=== PATIENT | female | born 1955 | race Two or more races ===

== ENCOUNTER 2021-02-16 14:08 | Inpatient (IN) | payer MEDICARE, BC ==
[~2021-02-16] VITALS: Ht 160 cm; Wt 84.9 kg
[2021-02-16 15:12] LABS: Basophils # (auto) 0 10 ^3/uL (0-0.2); Basophils % (auto) 0.3 % (0.0-2.0); Eosinophils # (auto) 0 10 ^3/uL (0-0.8); Eosinophils % (auto) 0.2 % (0.0-7.0); Lymphocytes # (auto) 0.7 10 ^3/uL (0.4-5.4); Mean Corpuscular Hemoglobin 33.1 pg (28.0-32.0); Mean Corpuscular Hgb Conc. 34.5 g/dL (32.0-36.0); Monocytes # (auto) 0.4 10 ^3/uL (0-1.3); Monocytes % (auto) 5.8 % (0.0-12.0); Neutrophils # (auto) 5.8 10 ^3/uL (1.6-8.6); Neutrophils % (auto) 83.7 % (37.0-80.0); Red Blood Cells 3.02 10^6/uL (4.0-5.20); Red Cell Distribution Width 14.1 % (11.8-14.3); White Blood Cell 6.9 10^3/uL (4.4-10.8)
[2021-02-16 15:22] LABS: Albumin 3.2 g/dL (3.4-5.0); Anion Gap 9 (5-15); Blood Urea Nitrogen 42 mg/dL (7-18); Calcium 8.5 mg/dL (8.5-10.1); Carbon Dioxide 18 mmol/L (21-32); Chloride 101 mmol/L (98-107); Potassium 4.7 mmol/L (3.5-5.1); Sodium 128 mmol/L (136-145)
[2021-02-16 15:25] LABS: Alanine Aminotransferase 32 U/L (13-56); Aspartate Aminotransferase 54 U/L (15-37); GFR African American 18 mL/min; GFR Non-African American 15 mL/min; Glucose 94 mg/dL (74-106)
[2021-02-16 15:30] LABS: Alkaline Phosphatase 66 U/L (45-117); Bilirubin, Total 0.5 mg/dL (0.2-1.0); Total Protein 7.3 g/dL (6.4-8.2)
[2021-02-16] MEDS ORDERED: IPRATROPIUM BROM 0.5 MG/2.5ML INH SOL NEB ONE (15:45)
[2021-02-16] MEDS ORDERED: methylPREDNISolone SOD SUCC 125 MG/2 ML VL IV ONE (15:45)
[2021-02-16] MEDS ORDERED: ALBUTEROL SULF 2.5 MG/0.5ML(0.5%) NEB SOLN NEB ONE (15:45)
[2021-02-16] MEDS ORDERED: cefTRIAXone 1GM/50ML D5W 50 ML IV ONE (18:00)
[2021-02-16] MEDS ORDERED: AZITHROMYCIN 500MG/ 250ML 250 ML IV ONE (18:00)
[2021-02-16 18:44] LABS: Urine Amorphous Crystal FEW /hpf (None Seen); Urine Bacteria FEW /hpf (None Seen); Urine Blood 3+ /uL (Negative); Urine Specific Gravity 1.014 (1.001-1.035); Urine WBC 2 /hpf (0 - 5)
[2021-02-16 18:51] LABS: Amphetamine Screen, Urine NEGATIVE (NEGATIVE); Barbiturate Scree,Urine NEGATIVE (NEGATIVE); Benzodiazephine Screen, Urine POSITIVE (NEGATIVE); Cannabinoid Screen, Urine POSITIVE (NEGATIVE); Cocaine Screen, Urine NEGATIVE (NEGATIVE)
[2021-02-16 18:58] LABS: Opiate Scree,Urine NEGATIVE (NEGATIVE); Phencyclidine Screen, Urine NEGATIVE (NEGATIVE)
[2021-02-16] MEDS ORDERED: NITROGLYCERIN 0.4 MG SL TAB SL PRN (19:00)
[2021-02-16] MEDS ORDERED: MORPHINE SULFATE INJECTION 2 MG/ML SYRG IV PRN (19:00)
[2021-02-16] MEDS ORDERED: FUROSEMIDE 20 MG/2 ML VIAL IV ONE (19:15)
[2021-02-16 22:00] VITALS: BP 128/68
[2021-02-16] MEDS: ALBUTEROL SULF HFA 90MCG INH 200DOSE IN PRN (22:12)
[2021-02-16 22:55] VITALS: BP 128/68
[2021-02-17 01:21] VITALS: BP 128/68
[2021-02-17 05:00] VITALS: BP 100/48
[2021-02-17 05:36] LABS: Basophils # (auto) 0 10 ^3/uL (0-0.2); Basophils % (auto) 0.1 % (0.0-2.0); Eosinophils # (auto) 0 10 ^3/uL (0-0.8); Eosinophils % (auto) 0.1 % (0.0-7.0); Hematocrit 27.5 % (36.0-46.0); Hemoglobin 9.6 g/dL (12.2-16.2); Lymphocytes # (auto) 0.3 10 ^3/uL (0.4-5.4); Lymphocytes % (auto) 8.1 % (10.0-50.0); Mean Corpuscular Hemoglobin 33.5 pg (28.0-32.0); Mean Corpuscular Hgb Conc. 34.9 g/dL (32.0-36.0); Mean Corpuscular Volume 96.1 fL (80.0-100.0); Monocytes # (auto) 0.1 10 ^3/uL (0-1.3); Monocytes % (auto) 2.5 % (0.0-12.0); Neutrophils # (auto) 3.5 10 ^3/uL (1.6-8.6); Neutrophils % (auto) 89.2 % (37.0-80.0); Red Blood Cells 2.86 10^6/uL (4.0-5.20); Red Cell Distribution Width 14.4 % (11.8-14.3)
[2021-02-17 06:01] LABS: Albumin 3.1 g/dL (3.4-5.0); Calcium 8.8 mg/dL (8.5-10.1); Potassium 4.6 mmol/L (3.5-5.1)
[2021-02-17 06:06] LABS: BUN/Creatinine Ratio 15.4; Bilirubin, Total 0.4 mg/dL (0.2-1.0); Total Protein 7.4 g/dL (6.4-8.2)
[2021-02-17] MEDS: ALBUTEROL SULF HFA 90MCG INH 200DOSE IN PRN (06:24)
[2021-02-17] MEDS ORDERED: IVERMECTIN 3 MG TAB PO ONE (07:00)
[2021-02-17] MEDS: ZINC SULFATE 220mg CAP or TAB PO SCH (08:14)
[2021-02-17] MEDS: DexAMETHasone SOD PHOS 10MG/1ML VIAL INJ IV SCH (08:14)
[2021-02-17] MEDS: ASCORBIC ACID 1,000 MG TAB PO SCH (08:14)
[2021-02-17] MEDS: CHOLECALCIFEROL (VITD3) 2,000 UNIT CAP/TAB PO SCH (08:14)
[2021-02-17] MEDS: ENOXAPARIN SOD 40 MG/0.4 ML SYRINGE SC SCH (08:15)
[2021-02-17 09:00] VITALS: BP 93/64
[2021-02-17] MEDS ORDERED: AZITHROMYCIN 500MG/ 250ML 250 ML IV SCH (10:00)
[2021-02-17 13:00] VITALS: BP 138/94
[2021-02-17] MEDS ORDERED: SODIUM BICARBONATE 50ML VIAL 75 ML in SOD CHL 0.45% 1,000 ML IV ONE (13:15)
[2021-02-17] MEDS ORDERED: BUDESONIDE (INHALATION) 0.5 MG/2 ML NEB NEB ONE (15:15)
[2021-02-17] MEDS ORDERED: ASPirin 81 mg TAB PO ONE (15:15)
[2021-02-17] MEDS ORDERED: BUDESONIDE (INHALATION) 0.5 MG/2 ML NEB ONE (15:21)
[2021-02-17] MEDS ORDERED: ALLO300T2 PO (15:52)
[2021-02-17] MEDS ORDERED: TEMA30CA PO (15:52)
[2021-02-17] MEDS ORDERED: MAGN400T40 PO (15:52)
[2021-02-17] MEDS ORDERED: ATOR40TA52 PO (15:52)
[2021-02-17] MEDS ORDERED: LEVO125T7 PO (15:52)
[2021-02-17] MEDS ORDERED: METO25TA5 PO (15:52)
[2021-02-17] MEDS ORDERED: SERT50TA19 PO (15:52)
[2021-02-17] MEDS ORDERED: OMEP20TA PO (15:52)
[2021-02-17] MEDS ORDERED: VALS40TA2 PO (15:52)
[2021-02-17 17:00] VITALS: BP 115/64
[2021-02-17] MEDS: Nepro With Carbsteady ButterPecan 8oz Carton PO SCH (18:14)
[2021-02-17] MEDS: ALBUTEROL SULF 2.5 MG/0.5ML(0.5%) NEB SOLN NEB SCH (18:58)
[2021-02-17] MEDS: IPRATROPIUM BROM 0.5 MG/2.5ML INH SOL NEB SCH (18:58)
[2021-02-17] MEDS: BUDESONIDE (INHALATION) 0.5 MG/2 ML NEB NEB SCH (18:58)
[2021-02-17] MEDS: ATORVASTATIN 20 MG TAB PO SCH (21:46)
[2021-02-17 22:00] VITALS: BP 131/76
[2021-02-18 05:00] VITALS: BP 125/70
[2021-02-18 06:16] LABS: Basophils # (auto) 0 10 ^3/uL (0-0.2); Basophils % (auto) 0.1 % (0.0-2.0); Eosinophils # (auto) 0 10 ^3/uL (0-0.8); Hematocrit 27.1 % (36.0-46.0); Hemoglobin 9.5 g/dL (12.2-16.2); Lymphocytes # (auto) 0.4 10 ^3/uL (0.4-5.4); Lymphocytes % (auto) 3.7 % (10.0-50.0); Mean Corpuscular Hemoglobin 33.1 pg (28.0-32.0); Mean Corpuscular Hgb Conc. 35.1 g/dL (32.0-36.0); Mean Corpuscular Volume 94.4 fL (80.0-100.0); Monocytes # (auto) 0.4 10 ^3/uL (0-1.3); Monocytes % (auto) 3.7 % (0.0-12.0); Neutrophils # (auto) 10.6 10 ^3/uL (1.6-8.6); Neutrophils % (auto) 92.5 % (37.0-80.0); Nucleated Red Blood Cells % 0.1 %; Red Blood Cells 2.87 10^6/uL (4.0-5.20); Red Cell Distribution Width 14.3 % (11.8-14.3); White Blood Cell 11.5 10^3/uL (4.4-10.8)
[2021-02-18 06:38] LABS: Potassium 4.7 mmol/L (3.5-5.1)
[2021-02-18 06:45] LABS: BUN/Creatinine Ratio 20.4; Calcium 8.9 mg/dL (8.5-10.1)
[2021-02-18] MEDS: IPRATROPIUM BROM 0.5 MG/2.5ML INH SOL NEB SCH ×3 (07:40→19:09)
[2021-02-18] MEDS: ALBUTEROL SULF 2.5 MG/0.5ML(0.5%) NEB SOLN NEB SCH ×3 (07:40→19:09)
[2021-02-18] MEDS: BUDESONIDE (INHALATION) 0.5 MG/2 ML NEB NEB SCH ×2 (07:40→19:09)
[2021-02-18] MEDS: Nepro With Carbsteady ButterPecan 8oz Carton PO SCH ×3 (08:54→18:24)
[2021-02-18 09:00] VITALS: BP 111/32
[2021-02-18] MEDS: DexAMETHasone SOD PHOS 10MG/1ML VIAL INJ IV SCH (09:33)
[2021-02-18] MEDS: AZITHROMYCIN 250 MG TAB PO SCH (09:34)
[2021-02-18] MEDS: ENOXAPARIN SOD 40 MG/0.4 ML SYRINGE SC SCH (09:34)
[2021-02-18] MEDS: ZINC SULFATE 220mg CAP or TAB PO SCH (09:34)
[2021-02-18] MEDS: ASCORBIC ACID 1,000 MG TAB PO SCH (09:34)
[2021-02-18] MEDS: CHOLECALCIFEROL (VITD3) 2,000 UNIT CAP/TAB PO SCH (09:34)
[2021-02-18] MEDS: ASPirin 81 mg TAB PO SCH (09:34)
[2021-02-18 13:00] VITALS: BP 134/70
[2021-02-18] MEDS: SODIUM BICARBONATE 50ML VIAL 75 ML in SOD CHL 0.45% 1,000 ML IV SCH (13:27)
[2021-02-18 17:00] VITALS: BP 131/78
[2021-02-18 22:00] VITALS: BP 126/76
[2021-02-18] MEDS: ATORVASTATIN 20 MG TAB PO SCH ×2 (22:36→22:50)
[2021-02-19] VITALS (8 sets, daily range): BP systolic 106–160; BP diastolic 58–79
[2021-02-19] MEDS: SODIUM BICARBONATE 50ML VIAL 75 ML in SOD CHL 0.45% 1,000 ML IV SCH ×2 (03:20→12:00)
[2021-02-19] MEDS: LEVOTHYROXINE SODIUM 50 MCG TAB PO SCH (06:21)
[2021-02-19 06:51] LABS: Basophils # (auto) 0 10 ^3/uL (0-0.2); Basophils % (auto) 0.2 % (0.0-2.0); Eosinophils # (auto) 0 10 ^3/uL (0-0.8); Hematocrit 26.2 % (36.0-46.0); Hemoglobin 9.4 g/dL (12.2-16.2); Lymphocytes # (auto) 0.5 10 ^3/uL (0.4-5.4); Lymphocytes % (auto) 6.4 % (10.0-50.0); Mean Corpuscular Hemoglobin 33.9 pg (28.0-32.0); Mean Corpuscular Hgb Conc. 35.8 g/dL (32.0-36.0); Mean Corpuscular Volume 94.6 fL (80.0-100.0); Monocytes # (auto) 0.4 10 ^3/uL (0-1.3); Monocytes % (auto) 5.7 % (0.0-12.0); Neutrophils # (auto) 6.4 10 ^3/uL (1.6-8.6); Neutrophils % (auto) 87.7 % (37.0-80.0); Red Blood Cells 2.77 10^6/uL (4.0-5.20); Red Cell Distribution Width 14.4 % (11.8-14.3); White Blood Cell 7.3 10^3/uL (4.4-10.8)
[2021-02-19 07:06] LABS: Potassium 4.4 mmol/L (3.5-5.1)
[2021-02-19 07:13] LABS: Calcium 8.7 mg/dL (8.5-10.1)
[2021-02-19] MEDS: BUDESONIDE (INHALATION) 0.5 MG/2 ML NEB NEB SCH ×2 (07:25→19:19)
[2021-02-19] MEDS: ALBUTEROL SULF 2.5 MG/0.5ML(0.5%) NEB SOLN NEB SCH ×3 (07:25→19:18)
[2021-02-19] MEDS: IPRATROPIUM BROM 0.5 MG/2.5ML INH SOL NEB SCH ×3 (07:25→19:19)
[2021-02-19] MEDS: Nepro With Carbsteady ButterPecan 8oz Carton PO SCH ×3 (08:20→17:51)
[2021-02-19] MEDS: ASPirin 81 mg TAB PO SCH (09:37)
[2021-02-19] MEDS: AZITHROMYCIN 250 MG TAB PO SCH (09:37)
[2021-02-19] MEDS: DexAMETHasone SOD PHOS 10MG/1ML VIAL INJ IV SCH (09:37)
[2021-02-19] MEDS: SERTRALINE HCL 50 MG TAB PO SCH (09:37)
[2021-02-19] MEDS: CHOLECALCIFEROL (VITD3) 2,000 UNIT CAP/TAB PO SCH (09:37)
[2021-02-19] MEDS: ASCORBIC ACID 1,000 MG TAB PO SCH (09:37)
[2021-02-19] MEDS: ZINC SULFATE 220mg CAP or TAB PO SCH (09:37)
[2021-02-19] MEDS: ALLOPURINOL 100 MG TAB PO SCH (09:38)
[2021-02-19] MEDS: ENOXAPARIN SOD 40 MG/0.4 ML SYRINGE SC SCH (09:39)
[2021-02-19] MEDS ORDERED: PROMETHAZINE W/CODEINE 5 ML ORAL SYRUP PO PRN (11:30)
[2021-02-19] MEDS: ACETAMINOPHEN 325 MG TAB PO PRN (12:26)
[2021-02-19] MEDS: TEMAZEPAM 15 MG CAP PO PRN (22:50)
[2021-02-20] MEDS: SODIUM BICARBONATE 50ML VIAL 75 ML in SOD CHL 0.45% 1,000 ML IV SCH (03:20)
[2021-02-20 05:00] VITALS: BP 148/79
[2021-02-20] MEDS: LEVOTHYROXINE SODIUM 50 MCG TAB PO SCH (06:21)
[2021-02-20] MEDS: IPRATROPIUM BROM 0.5 MG/2.5ML INH SOL NEB SCH ×3 (06:59→19:06)
[2021-02-20] MEDS: ALBUTEROL SULF 2.5 MG/0.5ML(0.5%) NEB SOLN NEB SCH ×3 (06:59→19:05)
[2021-02-20 07:12] LABS: Hematocrit 26.3 % (36.0-46.0); Hemoglobin 9.3 g/dL (12.2-16.2); Mean Corpuscular Hemoglobin 33.5 pg (28.0-32.0); Mean Corpuscular Hgb Conc. 35.2 g/dL (32.0-36.0); Mean Corpuscular Volume 95.1 fL (80.0-100.0); Red Blood Cells 2.76 10^6/uL (4.0-5.20); White Blood Cell 7.4 10^3/uL (4.4-10.8)
[2021-02-20 07:23] LABS: Band Neutrophils % (manual) 0; Basophils % (manual) 0 (0.0-2.0); Blast Cells 0; Eosinophils % (manual) 0 (0-7); Myelocytes % 0; Promyelocytes % 0; Reactive Lymphocytes 0
[2021-02-20 07:32] LABS: Potassium 4.4 mmol/L (3.5-5.1)
[2021-02-20 07:37] LABS: BUN/Creatinine Ratio 23.7; Calcium 8.7 mg/dL (8.5-10.1)
[2021-02-20 07:55] LABS: Lymphocytes % (manual) 6 (10.0-50.0); Metamyelocytes % 1; Monocytes % (manual) 7 (0-12)
[2021-02-20] MEDS: Nepro With Carbsteady ButterPecan 8oz Carton PO SCH ×3 (08:26→17:42)
[2021-02-20 09:00] VITALS: BP 147/73
[2021-02-20] MEDS: ENOXAPARIN SOD 40 MG/0.4 ML SYRINGE SC SCH (09:38)
[2021-02-20] MEDS: DexAMETHasone SOD PHOS 10MG/1ML VIAL INJ IV SCH (09:38)
[2021-02-20] MEDS: AZITHROMYCIN 250 MG TAB PO SCH (09:39)
[2021-02-20] MEDS: ALLOPURINOL 100 MG TAB PO SCH (09:39)
[2021-02-20] MEDS: ASPirin 81 mg TAB PO SCH (09:39)
[2021-02-20] MEDS: SERTRALINE HCL 50 MG TAB PO SCH (09:39)
[2021-02-20] MEDS: CHOLECALCIFEROL (VITD3) 2,000 UNIT CAP/TAB PO SCH (09:39)
[2021-02-20] MEDS: ASCORBIC ACID 1,000 MG TAB PO SCH (09:39)
[2021-02-20] MEDS: ZINC SULFATE 220mg CAP or TAB PO SCH (09:39)
[2021-02-20] MEDS: BUDESONIDE (INHALATION) 0.5 MG/2 ML NEB NEB SCH ×2 (10:55→19:06)
[2021-02-20 13:01] VITALS: BP 129/67
[2021-02-20 16:58] VITALS: BP 136/79
[2021-02-20] MEDS ORDERED: FUROSEMIDE 40 MG/4 ML VIAL IV ONE (17:30)
[2021-02-20] MEDS: ATORVASTATIN 20 MG TAB PO SCH (21:52)
[2021-02-20] MEDS: TEMAZEPAM 15 MG CAP PO PRN (21:52)
[2021-02-20 22:00] VITALS: BP 124/63
[2021-02-20] MEDS: ACETAMINOPHEN 325 MG TAB PO PRN (23:47)
[2021-02-21] MEDS: traMADol HCL 50 MG TAB PO PRN ×2 (02:19→10:33)
[2021-02-21 05:00] VITALS: BP 150/78
[2021-02-21] MEDS: IPRATROPIUM BROM 0.5 MG/2.5ML INH SOL NEB SCH ×3 (06:00→18:47)
[2021-02-21] MEDS: ALBUTEROL SULF 2.5 MG/0.5ML(0.5%) NEB SOLN NEB SCH ×3 (06:00→18:46)
[2021-02-21] MEDS: LEVOTHYROXINE SODIUM 50 MCG TAB PO SCH (06:25)
[2021-02-21] MEDS: Nepro With Carbsteady ButterPecan 8oz Carton PO SCH ×3 (08:00→18:00)
[2021-02-21 09:00] VITALS: BP 141/72
[2021-02-21] MEDS: BUDESONIDE (INHALATION) 0.5 MG/2 ML NEB NEB SCH ×2 (10:00→18:47)
[2021-02-21] MEDS: DexAMETHasone SOD PHOS 10MG/1ML VIAL INJ IV SCH (10:33)
[2021-02-21] MEDS: ASPirin 81 mg TAB PO SCH (10:33)
[2021-02-21] MEDS: CHOLECALCIFEROL (VITD3) 2,000 UNIT CAP/TAB PO SCH (10:34)
[2021-02-21] MEDS: SERTRALINE HCL 50 MG TAB PO SCH (10:34)
[2021-02-21] MEDS: ASCORBIC ACID 1,000 MG TAB PO SCH (10:34)
[2021-02-21] MEDS: ZINC SULFATE 220mg CAP or TAB PO SCH (10:34)
[2021-02-21] MEDS: ENOXAPARIN SOD 40 MG/0.4 ML SYRINGE SC SCH (10:35)
[2021-02-21] MEDS: ALLOPURINOL 100 MG TAB PO SCH (10:35)
[2021-02-21] MEDS ORDERED: FUROSEMIDE 40 MG/4 ML VIAL IV ONE (12:45)
[2021-02-21 13:00] VITALS: BP 138/70
[2021-02-21 13:14] LABS: Hematocrit 26.3 % (36.0-46.0); Hemoglobin 9.1 g/dL (12.2-16.2); Mean Corpuscular Hemoglobin 33.1 pg (28.0-32.0); Mean Corpuscular Hgb Conc. 34.8 g/dL (32.0-36.0); Mean Corpuscular Volume 95.1 fL (80.0-100.0); Red Blood Cells 2.76 10^6/uL (4.0-5.20); Red Cell Distribution Width 14.3 % (11.8-14.3); White Blood Cell 8.1 10^3/uL (4.4-10.8)
[2021-02-21 13:21] LABS: Basophils % (manual) 0 (0.0-2.0); Blast Cells 0; Eosinophils % (manual) 0 (0-7); Metamyelocytes % 0; Myelocytes % 0; Promyelocytes % 0; Reactive Lymphocytes 0
[2021-02-21 13:37] LABS: BUN/Creatinine Ratio 19.2; Calcium 8.7 mg/dL (8.5-10.1); Potassium 4.3 mmol/L (3.5-5.1)
[2021-02-21 13:38] LABS: Band Neutrophils % (manual) 2; Lymphocytes % (manual) 2 (10.0-50.0); Monocytes % (manual) 1 (0-12)
[2021-02-21 17:00] VITALS: BP 138/81
[2021-02-21 22:00] VITALS: BP 102/59
[2021-02-21] MEDS: ATORVASTATIN 20 MG TAB PO SCH (22:35)
[2021-02-21] MEDS: TEMAZEPAM 15 MG CAP PO PRN (22:36)
[2021-02-22] MEDS: traMADol HCL 50 MG TAB PO PRN (04:09)
[2021-02-22 05:45] VITALS: BP 142/78
[2021-02-22] MEDS: LEVOTHYROXINE SODIUM 50 MCG TAB PO SCH (06:45)
[2021-02-22] MEDS: IPRATROPIUM BROM 0.5 MG/2.5ML INH SOL NEB SCH ×3 (07:01→18:35)
[2021-02-22] MEDS: ALBUTEROL SULF 2.5 MG/0.5ML(0.5%) NEB SOLN NEB SCH ×3 (07:01→18:35)
[2021-02-22] MEDS: BUDESONIDE (INHALATION) 0.5 MG/2 ML NEB NEB SCH ×2 (07:01→18:35)
[2021-02-22 07:39] LABS: Hematocrit 26.3 % (36.0-46.0); Hemoglobin 9.3 g/dL (12.2-16.2); Mean Corpuscular Hgb Conc. 35.3 g/dL (32.0-36.0); Mean Corpuscular Volume 96.1 fL (80.0-100.0); Red Blood Cells 2.73 10^6/uL (4.0-5.20); Red Cell Distribution Width 14.4 % (11.8-14.3); White Blood Cell 7.5 10^3/uL (4.4-10.8)
[2021-02-22 07:45] LABS: Basophils % (manual) 0 (0.0-2.0); Blast Cells 0; Metamyelocytes % 0; Promyelocytes % 0; Reactive Lymphocytes 0
[2021-02-22 07:48] LABS: Calcium 8.9 mg/dL (8.5-10.1); Potassium 4.2 mmol/L (3.5-5.1)
[2021-02-22 07:50] LABS: BUN/Creatinine Ratio 20.1
[2021-02-22] MEDS: Nepro With Carbsteady ButterPecan 8oz Carton PO SCH ×3 (08:00→18:00)
[2021-02-22 09:00] VITALS: BP 127/89
[2021-02-22 09:52] LABS: Band Neutrophils % (manual) 2; Eosinophils % (manual) 2 (0-7); Lymphocytes % (manual) 8 (10.0-50.0); Monocytes % (manual) 2 (0-12); Myelocytes % 1
[2021-02-22] MEDS: DexAMETHasone SOD PHOS 10MG/1ML VIAL INJ IV SCH (09:55)
[2021-02-22] MEDS: ZINC SULFATE 220mg CAP or TAB PO SCH (09:56)
[2021-02-22] MEDS: ASPirin 81 mg TAB PO SCH (09:56)
[2021-02-22] MEDS: ASCORBIC ACID 1,000 MG TAB PO SCH (09:56)
[2021-02-22] MEDS: SERTRALINE HCL 50 MG TAB PO SCH (09:59)
[2021-02-22] MEDS: CHOLECALCIFEROL (VITD3) 2,000 UNIT CAP/TAB PO SCH (09:59)
[2021-02-22] MEDS: ALLOPURINOL 100 MG TAB PO SCH (10:00)
[2021-02-22] MEDS: ENOXAPARIN SOD 40 MG/0.4 ML SYRINGE SC SCH (10:00)
[2021-02-22 13:00] VITALS: BP 113/68
[2021-02-22] MEDS ORDERED: FUROSEMIDE 40 MG/4 ML VIAL IV ONE (15:00)
[2021-02-22 17:00] VITALS: BP 109/66
[2021-02-22] MEDS: ATORVASTATIN 20 MG TAB PO SCH (21:12)
[2021-02-22] MEDS: TEMAZEPAM 15 MG CAP PO PRN (21:12)
[2021-02-22 22:00] VITALS: BP 117/60
[2021-02-22 22:12] LABS: Creatinine, Urine 49 mg/dL (30.0-125.0); Sodium Urine 64 mmol/L (40-220)
[2021-02-22 23:00] VITALS: BP 117/60
[2021-02-23 05:00] VITALS: BP 115/67
[2021-02-23] MEDS: LEVOTHYROXINE SODIUM 50 MCG TAB PO SCH (06:41)
[2021-02-23 06:58] LABS: Potassium 4.3 mmol/L (3.5-5.1)
[2021-02-23 07:14] LABS: BUN/Creatinine Ratio 21.9; Calcium 9.2 mg/dL (8.5-10.1)
[2021-02-23] MEDS: IPRATROPIUM BROM 0.5 MG/2.5ML INH SOL NEB SCH ×3 (07:51→12:50)
[2021-02-23] MEDS: ALBUTEROL SULF 2.5 MG/0.5ML(0.5%) NEB SOLN NEB SCH ×3 (07:51→12:50)
[2021-02-23] MEDS: Nepro With Carbsteady ButterPecan 8oz Carton PO SCH ×3 (08:08→17:40)
[2021-02-23] MEDS: BUDESONIDE (INHALATION) 0.5 MG/2 ML NEB NEB SCH ×2 (08:22→22:10)
[2021-02-23 09:00] VITALS: BP 111/66
[2021-02-23] MEDS: SERTRALINE HCL 50 MG TAB PO SCH (10:20)
[2021-02-23] MEDS: ZINC SULFATE 220mg CAP or TAB PO SCH (10:20)
[2021-02-23] MEDS: ALLOPURINOL 100 MG TAB PO SCH (10:21)
[2021-02-23] MEDS: ASCORBIC ACID 1,000 MG TAB PO SCH (10:21)
[2021-02-23] MEDS: ASPirin 81 mg TAB PO SCH (10:21)
[2021-02-23] MEDS: CHOLECALCIFEROL (VITD3) 2,000 UNIT CAP/TAB PO SCH (10:22)
[2021-02-23] MEDS: DexAMETHasone SOD PHOS 10MG/1ML VIAL INJ IV SCH (10:22)
[2021-02-23] MEDS: ENOXAPARIN SOD 40 MG/0.4 ML SYRINGE SC SCH (10:22)
[2021-02-23] MEDS ORDERED: FUROSEMIDE 40 MG TAB PO ONE (12:45)
[2021-02-23 13:00] VITALS: BP 127/70
[2021-02-23 17:00] VITALS: BP 121/74
[2021-02-23] MEDS: TEMAZEPAM 15 MG CAP PO PRN (21:12)
[2021-02-23] MEDS: ATORVASTATIN 20 MG TAB PO SCH (21:12)
[2021-02-23 22:00] VITALS: BP 114/65
[2021-02-24] MEDS: traMADol HCL 50 MG TAB PO PRN (03:55)
[2021-02-24 05:00] VITALS: BP 139/78
[2021-02-24] MEDS: LEVOTHYROXINE SODIUM 50 MCG TAB PO SCH (06:37)
[2021-02-24 07:35] LABS: Calcium 9.1 mg/dL (8.5-10.1)
[2021-02-24 07:37] LABS: BUN/Creatinine Ratio 22.8
[2021-02-24] MEDS: IPRATROPIUM BROM 0.5 MG/2.5ML INH SOL NEB SCH ×3 (08:02→19:29)
[2021-02-24] MEDS: ALBUTEROL SULF 2.5 MG/0.5ML(0.5%) NEB SOLN NEB SCH ×3 (08:02→19:29)
[2021-02-24] MEDS: BUDESONIDE (INHALATION) 0.5 MG/2 ML NEB NEB SCH ×2 (08:02→19:29)
[2021-02-24] MEDS: Nepro With Carbsteady ButterPecan 8oz Carton PO SCH ×3 (08:06→17:43)
[2021-02-24 09:00] VITALS: BP 104/60
[2021-02-24] MEDS ORDERED: FUROSEMIDE 40 MG TAB PO SCH (10:00)
[2021-02-24] MEDS: DexAMETHasone SOD PHOS 10MG/1ML VIAL INJ IV SCH (10:48)
[2021-02-24] MEDS: ASPirin 81 mg TAB PO SCH (10:48)
[2021-02-24] MEDS: ASCORBIC ACID 1,000 MG TAB PO SCH (10:49)
[2021-02-24] MEDS: ZINC SULFATE 220mg CAP or TAB PO SCH (10:49)
[2021-02-24] MEDS: CHOLECALCIFEROL (VITD3) 2,000 UNIT CAP/TAB PO SCH (10:50)
[2021-02-24] MEDS: ENOXAPARIN SOD 40 MG/0.4 ML SYRINGE SC SCH (10:50)
[2021-02-24] MEDS: SERTRALINE HCL 50 MG TAB PO SCH (10:50)
[2021-02-24] MEDS: ALLOPURINOL 100 MG TAB PO SCH (10:50)
[2021-02-24] MEDS ORDERED: SODIUM CHLORIDE 0.9% 1,000 ML IV SCH (11:00)
[2021-02-24 12:45] VITALS: BP 131/71
[2021-02-24 16:48] VITALS: BP 144/76
[2021-02-24] MEDS: ATORVASTATIN 20 MG TAB PO SCH (21:42)
[2021-02-24] MEDS: TEMAZEPAM 15 MG CAP PO PRN (21:42)
[2021-02-24 22:00] VITALS: BP 130/76
[2021-02-25 05:00] VITALS: BP 145/64
[2021-02-25] MEDS: ALBUTEROL SULF 2.5 MG/0.5ML(0.5%) NEB SOLN NEB SCH ×3 (06:58→20:29)
[2021-02-25] MEDS: BUDESONIDE (INHALATION) 0.5 MG/2 ML NEB NEB SCH ×2 (06:58→20:30)
[2021-02-25] MEDS: IPRATROPIUM BROM 0.5 MG/2.5ML INH SOL NEB SCH ×3 (06:58→20:29)
[2021-02-25] MEDS: LEVOTHYROXINE SODIUM 50 MCG TAB PO SCH (07:00)
[2021-02-25] MEDS: Nepro With Carbsteady ButterPecan 8oz Carton PO SCH ×3 (08:00→17:58)
[2021-02-25 09:00] VITALS: BP 128/74
[2021-02-25] MEDS: DexAMETHasone 4 MG TAB PO SCH (09:41)
[2021-02-25] MEDS: ASPirin 81 mg TAB PO SCH (09:41)
[2021-02-25] MEDS: ZINC SULFATE 220mg CAP or TAB PO SCH (09:41)
[2021-02-25] MEDS: ASCORBIC ACID 1,000 MG TAB PO SCH (09:42)
[2021-02-25] MEDS: CHOLECALCIFEROL (VITD3) 2,000 UNIT CAP/TAB PO SCH (09:42)
[2021-02-25] MEDS: SERTRALINE HCL 50 MG TAB PO SCH (09:43)
[2021-02-25] MEDS: ENOXAPARIN SOD 40 MG/0.4 ML SYRINGE SC SCH (09:43)
[2021-02-25] MEDS ORDERED: B-COMPLEX W/ C & FOLIC ACID(NEPHROVITE TAB) PO ONE (10:30)
[2021-02-25] MEDS: ALLOPURINOL 100 MG TAB PO SCH (12:34)
[2021-02-25 13:00] VITALS: BP 126/71
[2021-02-25 17:00] VITALS: BP 120/76
[2021-02-25] MEDS: FUROSEMIDE 40 MG/4 ML VIAL IV SCH (17:58)
[2021-02-25 20:55] VITALS: BP 126/71
[2021-02-25] MEDS: ATORVASTATIN 20 MG TAB PO SCH (21:39)
[2021-02-25 22:00] VITALS: BP 128/71
[2021-02-25] MEDS: TEMAZEPAM 15 MG CAP PO PRN (22:25)
[2021-02-26] MEDS: traMADol HCL 50 MG TAB PO PRN (02:53)
[2021-02-26 05:00] VITALS: BP 137/81
[2021-02-26] MEDS: FUROSEMIDE 40 MG/4 ML VIAL IV SCH (06:05)
[2021-02-26] MEDS: LEVOTHYROXINE SODIUM 50 MCG TAB PO SCH (06:05)
[2021-02-26 06:46] LABS: Basophils # (auto) 0 10 ^3/uL (0-0.2); Basophils % (auto) 0.4 % (0.0-2.0); Eosinophils # (auto) 0.1 10 ^3/uL (0-0.8); Eosinophils % (auto) 0.8 % (0.0-7.0); Hematocrit 27.8 % (36.0-46.0); Hemoglobin 9.7 g/dL (12.2-16.2); Lymphocytes # (auto) 1.1 10 ^3/uL (0.4-5.4); Lymphocytes % (auto) 12.6 % (10.0-50.0); Mean Corpuscular Hemoglobin 33.4 pg (28.0-32.0); Mean Corpuscular Volume 95.4 fL (80.0-100.0); Monocytes # (auto) 0.5 10 ^3/uL (0-1.3); Monocytes % (auto) 5.7 % (0.0-12.0); Neutrophils # (auto) 7.3 10 ^3/uL (1.6-8.6); Neutrophils % (auto) 80.5 % (37.0-80.0); Red Blood Cells 2.91 10^6/uL (4.0-5.20); Red Cell Distribution Width 14.3 % (11.8-14.3); White Blood Cell 9.1 10^3/uL (4.4-10.8)
[2021-02-26 07:08] LABS: BUN/Creatinine Ratio 21.3; Bilirubin, Total 0.5 mg/dL (0.2-1.0); Phosphorus 4.6 mg/dL (2.5-4.90); Potassium 3.6 mmol/L (3.5-5.1); Total Protein 7.1 g/dL (6.4-8.2)
[2021-02-26] MEDS: ALBUTEROL SULF 2.5 MG/0.5ML(0.5%) NEB SOLN NEB SCH ×2 (07:31→14:58)
[2021-02-26] MEDS: BUDESONIDE (INHALATION) 0.5 MG/2 ML NEB NEB SCH (07:31)
[2021-02-26] MEDS: IPRATROPIUM BROM 0.5 MG/2.5ML INH SOL NEB SCH ×2 (07:31→14:58)
[2021-02-26] MEDS: Nepro With Carbsteady ButterPecan 8oz Carton PO SCH ×2 (08:00→12:00)
[2021-02-26 09:30] VITALS: BP 136/88
[2021-02-26] MEDS ORDERED: B-COMPLEX W/ C & FOLIC ACID(NEPHROVITE TAB) PO SCH (10:00)
[2021-02-26] MEDS: CHOLECALCIFEROL (VITD3) 2,000 UNIT CAP/TAB PO SCH (10:00)
[2021-02-26] MEDS: ENOXAPARIN SOD 40 MG/0.4 ML SYRINGE SC SCH (11:11)
[2021-02-26] MEDS: ALLOPURINOL 100 MG TAB PO SCH (11:11)
[2021-02-26] MEDS: ZINC SULFATE 220mg CAP or TAB PO SCH (11:11)
[2021-02-26] MEDS: ASCORBIC ACID 1,000 MG TAB PO SCH (11:12)
[2021-02-26] MEDS: ASPirin 81 mg TAB PO SCH (11:12)
[2021-02-26] MEDS: DexAMETHasone 4 MG TAB PO SCH (11:12)
[2021-02-26] MEDS: SERTRALINE HCL 50 MG TAB PO SCH (11:12)
[2021-02-26 13:00] VITALS: BP 140/80
[2021-02-26 15:44] VITALS: BP 137/81
[2021-02-26 17:13] VITALS: BP 132/65
== END 2021-02-26 18:00 | disposition home or self-care (01) | DRG 871 ==
LOC: EDBD 14:08 → ER 14:08 → TELE 18:51 → TELE-EAST 20:55
PROVIDERS: ADMIT Nurse Practitioner Acute Care; ATTEND Internal Medicine
DX: A41.89 Other specified sepsis (principal); U07.1 COVID-19; J96.01 Acute respiratory failure with hypoxia; J12.82 Pneumonia due to coronavirus disease 2019; I50.21 Acute systolic (congestive) heart failure; N17.0 Acute kidney failure with tubular necrosis; D68.59 Other primary thrombophilia; N18.4 Chronic kidney disease, stage 4 (severe); J44.1 Chronic obstructive pulmonary disease with (acute) exacerbation; I13.0 Hypertensive heart and chronic kidney disease with heart failure and stage 1 through stage 4 chronic kidney disease, or unspecified chronic kidney disease; J44.0 Chronic obstructive pulmonary disease with (acute) lower respiratory infection; D89.839 Cytokine release syndrome, grade unspecified; I25.10 Atherosclerotic heart disease of native coronary artery without angina pectoris; E03.9 Hypothyroidism, unspecified; F17.210 Nicotine dependence, cigarettes, uncomplicated; E66.9 Obesity, unspecified; D63.1 Anemia in chronic kidney disease; E78.5 Hyperlipidemia, unspecified; Z68.34 Body mass index [BMI] 34.0-34.9, adult; Z79.82 Long term (current) use of aspirin; Z95.5 Presence of coronary angioplasty implant and graft; Z79.899 Other long term (current) drug therapy
CPT/HCPCS: 36415; 36600; 71045; 76775; 80048; 80053; 80307; 81001; 82306; 82570; 82728; 82805; 83605; 83880; 83970; 84100; 84300; 84439; 84443; 84484; 85007; 85025; 85027; 85379; 86141; 87040; 87081; 87426; 93005; 94640; 96365; 96368; 96375; 97110; 97116; 97530; G0378; J0696; J1100